=== PATIENT | female | born 1940 | race Caucasian/White ===

== ENCOUNTER → 2020-10-19 | Outpatient (CLI) | payer MEDICARE ==
--- NOTE | 2020-10-19 10:35 | US ---
EXAMINATION TYPE: US kidneys/renal and bladder DATE OF EXAM: 10/19/2020 COMPARISON: NONE CLINICAL HISTORY: N13.30 Hydronephrosis. right flank pain EXAM MEASUREMENTS: Right Kidney: 9.4 x 4.2 x 4.5 cm Left Kidney: 10.1 x 3.9 x 4.3 cm Right Kidney: mild hydronephrosis. cystic area mid/lower = 1.8 x 1.9 x 1.8cm Left Kidney: no evidence of hydronephrosis Bladder: wnl Bilateral Jets seen: yes No nephrolithiasis is seen. The urinary bladder is anechoic. Bilateral ureteral jets are seen. IMPRESSION: 1. Mild right-sided hydronephrosis of uncertain etiology. 2. Cyst right kidney.
== END | disposition home or self-care (01) ==
LOC: RADUSWWP 10:00
PROVIDERS: ATTEND Urology
DX: N13.30 Unspecified hydronephrosis (principal); N28.1 Cyst of kidney, acquired
CPT/HCPCS: 76770